=== PATIENT | female | born 1940 | race Hispanic/Latino ===

== ENCOUNTER 2017-07-19 19:11 | Inpatient (IN) | payer MEDICARE ==
[~2017-07-19] VITALS: Ht 157.5 cm; Wt 67.4 kg
[2017-07-19] MEDS ORDERED: ONDANSETRON HCL 4 MG/2 ML VIAL ONE (19:31)
[2017-07-19] MEDS ORDERED: HYDROMORPHONE 1 MG/1 ML AMP ONE ×2 (19:31→21:06)
[2017-07-19 20:34] LABS: BASOPHILS % (AUTO) 0.3 % (0.0-5.0); EOSINOPHILS % (AUTO) 0.1 % (0.0-8.0); LYMPHOCYTES % (AUTO) 6.6 % (21.0-51.0); MEAN CORPUSCULAR HEMOGLOBIN 31.1 pg (27.0-33.0); MEAN CORPUSCULAR HGB CONC 33.6 g/dL (32.0-36.0); MEAN CORPUSCULAR VOLUME 92.6 fL (79-99); MONOCYTES % (AUTO) 8.4 % (3.0-13.0); NEUTROPHILS % (AUTO) 84.6 % (40.0-77.0); PLATELET COUNT (AUTO) 164 K/uL (130-400); RED BLOOD CELL COUNT(AUTO) 3.79 MIL/uL (4.00-5.50); WHITE BLOOD COUNT (AUTO) 11.2 K/uL (4.8-10.8)
[2017-07-19 20:35] LABS: APPEARANCE,URINE Cloudy (CLEAR); BILIRUBIN,URINE Negative (NEGATIVE); COLOR,URINE Yellow (YELLOW); GLUCOSE, URINE (UA) 250 mg/dL (NEGATIVE); KETONES,URINE Negative (NEGATIVE); LEUKOCYTE ESTERASE ,URINE Large (NEGATIVE); NITRATE,URINE Positive (NEGATIVE); OCCULT BLOOD,URINE Small (NEGATIVE); PROTEIN,URINE Trace (NEGATIVE); UROBILINOGEN,URINE 0.2 mg/dL (0.2-1.0)
[2017-07-19 20:59] LABS: BACTERIA,URINE Many /HPF (None Seen); RBC,URINE None Seen /HPF (0-1)
[2017-07-19 21:01] LABS: CREATINE KINASE MB 9.5 ng/mL (0.5-3.6)
[2017-07-19] MEDS ORDERED: CEFTRIAXONE SODIUM 1 GM ONE (22:23)
[2017-07-20] VITALS (7 sets, daily range): BP systolic 120–165; BP diastolic 59–84
[2017-07-20] MEDS ORDERED: CARV12.511 PO (01:42)
[2017-07-20] MEDS ORDERED: VALB80CA PO (01:42)
[2017-07-20] MEDS ORDERED: LORA10TA7 PO (01:42)
[2017-07-20] MEDS ORDERED: MONT10TA24 PO (01:42)
[2017-07-20] MEDS ORDERED: ASPI-555 PO (01:42)
[2017-07-20] MEDS ORDERED: SERT50TA12 PO (01:42)
[2017-07-20] MEDS ORDERED: FOLI1TAB15 PO (01:42)
[2017-07-20] MEDS ORDERED: IBUP-2077 PO (01:42)
[2017-07-20] MEDS ORDERED: INSLAN SQ (01:42)
[2017-07-20] MEDS ORDERED: CYAN250014 PO (01:42)
[2017-07-20] MEDS ORDERED: FERR324T4 PO (01:42)
[2017-07-20] MEDS ORDERED: CARB-39 PO (01:42)
[2017-07-20] MEDS ORDERED: LISI-613 PO (01:42)
[2017-07-20] MEDS ORDERED: LOVA40TA2 PO (01:42)
[2017-07-20] MEDS ORDERED: TRAZ-147 PO (01:42)
[2017-07-20] MEDS ORDERED: MELO-106 PO (01:42)
[2017-07-20 05:10] LABS: HEMATOCRIT 31.1 % (36-48); MEAN CORPUSCULAR HEMOGLOBIN 31.8 pg (27.0-33.0); MEAN CORPUSCULAR HGB CONC 34.2 g/dL (32.0-36.0); PLATELET COUNT (AUTO) 144 K/uL (130-400); RED BLOOD CELL COUNT(AUTO) 3.34 MIL/uL (4.00-5.50); WHITE BLOOD COUNT (AUTO) 8.7 K/uL (4.8-10.8)
[2017-07-20 05:27] LABS: CREATININE 1.9 mg/dL (0.5-1.5); POTASSIUM 3.4 mmol/L (3.5-5.1)
[2017-07-20] MEDS ORDERED: SODIUM CHLORIDE 0.9% 500ML 500 ML IV SCH (06:30)
[2017-07-20] MEDS ORDERED: HYDROMORPHONE HCL 2 MG/ML VIAL IVP PRN (06:30)
[2017-07-20] MEDS ORDERED: ACETAMINOPHEN 325 MG TAB PO PRN ×3 (06:30→11:45)
[2017-07-20] MEDS ORDERED: ONDANSETRON HCL 4 MG/2 ML VIAL IVP PRN (06:30)
[2017-07-20] MEDS ORDERED: GLUCAGON 1MG KIT 1 MG ML IM PRN (09:45)
[2017-07-20] MEDS ORDERED: LIDOCAINE HCL-MPF 1% 2ML VIAL IVP PRN (09:45)
[2017-07-20] MEDS ORDERED: POTASSIUM CHLORIDE 20MEQ/100ML 100 ML IV PRN (09:45)
[2017-07-20] MEDS ORDERED: DEXTROSE 50%-WATER 50 ML DISP.SYRIN IV PRN (09:45)
[2017-07-20] MEDS: ACETAMINOPHEN-CODEINE 300/30MG TAB PO PRN (10:20)
[2017-07-20] MEDS: POTASSIUM CHLORIDE 20 MEQ ERTAB PO PRN ×2 (10:33→12:29)
[2017-07-20] MEDS: INSULIN HUMULIN R 100 UNIT/ML 3ML SQ SCH ×3 (11:30→21:09)
[2017-07-20] MEDS ORDERED: SODIUM CHLORIDE 0.9% 1000ML 1,000 ML IV SCH (11:37)
[2017-07-20] MEDS ORDERED: ONDANSETRON HCL 4 MG/2 ML VIAL IV PRN (11:45)
[2017-07-20] MEDS ORDERED: GUAIFENESIN-DM 200/20 MG 10 ML PO PRN (11:45)
[2017-07-20] MEDS ORDERED: MAG HYDROX/AL HYDROX/SIMETH ES 30 ML SUSP UDCUP PO PRN (11:45)
[2017-07-20] MEDS ORDERED: NITROGLYCERIN 0.4 MG SL TAB SL PRN (11:45)
[2017-07-20] MEDS ORDERED: TRAZODONE HCL 100 MG TABLET PO PRN (11:45)
[2017-07-20] MEDS ORDERED: SODIUM CHLORIDE 0.9% 1000ML 1,000 ML IV ONE (12:06)
[2017-07-20] MEDS ORDERED: ENOXAPARIN SODIUM 40 MG/0.4 ML SYRINGE SQ SCH (12:15)
[2017-07-20] MEDS: CARBIDOPA LEVO PO SCH ×2 (14:00→20:58)
[2017-07-20] MEDS: INSULIN GLARGINE 100 UNITS/ML 10 ML VIAL SQ SCH (16:30)
[2017-07-20] MEDS: CARVEDILOL 12.5 MG TABLET PO SCH (20:57)
[2017-07-20] MEDS: FAMOTIDINE/PF 20 MG/2 ML VIAL IV SCH (20:57)
[2017-07-21] VITALS (28 sets, daily range): BP systolic 113–195; BP diastolic 44–89
[2017-07-21 05:25] LABS: HEMATOCRIT 28.6 % (36-48); MEAN CORPUSCULAR HEMOGLOBIN 32.1 pg (27.0-33.0); MEAN CORPUSCULAR HGB CONC 34.5 g/dL (32.0-36.0); MEAN CORPUSCULAR VOLUME 93.2 fL (79-99); NUCLEATED RED BLOOD CELLS 0.1 % (0.0-0.19); PLATELET COUNT (AUTO) 153 K/uL (130-400); RED BLOOD CELL COUNT(AUTO) 3.07 MIL/uL (4.00-5.50); RED CELL DISTRIBUTION WIDTH 14.9 % (11.0-15.5); WHITE BLOOD COUNT (AUTO) 7.8 K/uL (4.8-10.8)
[2017-07-21 05:36] LABS: PHOSPHORUS 2.6 mg/dL (2.5-4.9); POTASSIUM 3.9 mmol/L (3.5-5.1)
[2017-07-21] MEDS ORDERED: CEFAZOLIN 2GM / 50 ML 50 ML IV ONE (06:00)
[2017-07-21] MEDS: CEFAZOLIN SODIUM 1 GM VIAL IVP SCH ×4 (06:00→22:20)
[2017-07-21] MEDS: WATER FOR INJECTION,STERILE 20 ML VIAL IJ SCH ×2 (06:00→19:27)
[2017-07-21 06:33] LABS: BAND NEUTROPHILS % (MANUAL) 8 % (0-2); BASOPHILS % (MANUAL) 1 % (0-2); LYMPHOCYTES % (MANUAL) 14 % (22-44); MONOCYTES % (MANUAL) 10 % (2-9); REACTIVE LYMPHOCYTES 1 % (0-0); SEGMENTED NEUTROPHILS % 66 % (40-70)
[2017-07-21 06:34] LABS: MAN.DIFF COMMENT-IMPRESSION MANUAL DIFFERENTIAL
[2017-07-21 06:35] LABS: PLATELET MORPHOLOGY COMMENT ADEQUATE
[2017-07-21] MEDS: INSULIN HUMULIN R 100 UNIT/ML 3ML SQ SCH ×4 (07:07→20:50)
[2017-07-21] MEDS: CARVEDILOL 12.5 MG TABLET PO SCH ×2 (07:26→20:21)
[2017-07-21] MEDS ORDERED: FENTANYL CITRATE PF 50 MCG/1 ML 5ML AMP IV ONE (08:05)
[2017-07-21] MEDS ORDERED: PROPOFOL 10 MG/ML 20ML VIAL IV ONE (08:05)
[2017-07-21] MEDS: LORATADINE 10 MG TABLET PO SCH (09:00)
[2017-07-21] MEDS: FOLIC ACID 1 MG TABLET PO SCH (09:00)
[2017-07-21] MEDS: CARBIDOPA LEVO PO SCH ×3 (09:00→19:26)
[2017-07-21] MEDS: CYANOCOBALAMIN (VITAMIN B-12) 1,000 MCG TABLET PO SCH (09:00)
[2017-07-21] MEDS: SERTRALINE HCL 50 MG TABLET PO SCH (09:00)
[2017-07-21] MEDS: INGREZZA PO SCH (09:00)
[2017-07-21] MEDS: FERROUS SULFATE 325 MG TABLET.DR PO SCH (09:00)
[2017-07-21] MEDS: MONTELUKAST SODIUM 10 MG TAB PO SCH (09:00)
[2017-07-21] MEDS ORDERED: EPHEDRINE SULFATE 50 MG/ML AMPULE ONE (09:22)
[2017-07-21] MEDS: CEFTRIAXONE SODIUM 1 GM IV SCH (10:10)
[2017-07-21] MEDS: HYDRALAZINE HCL 20 MG/ML VIAL IV PRN (10:21)
[2017-07-21] MEDS: FAMOTIDINE/PF 20 MG/2 ML VIAL IV SCH (11:58)
[2017-07-21] MEDS: CEFAZOLIN 2GM / 50 ML 50 ML IV SCH ×2 (15:56→22:00)
[2017-07-21] MEDS: INSULIN GLARGINE 100 UNITS/ML 10 ML VIAL SQ SCH (17:04)
[2017-07-21] MEDS: ATORVASTATIN CALCIUM 10 MG TABLET PO SCH (20:21)
[2017-07-21] MEDS: ACETAMINOPHEN-CODEINE 300/30MG TAB PO PRN (22:25)
[2017-07-22 04:00] VITALS: BP 147/69
[2017-07-22 04:40] LABS: HEMATOCRIT 26.4 % (36-48); MEAN CORPUSCULAR HEMOGLOBIN 31.5 pg (27.0-33.0); MEAN CORPUSCULAR VOLUME 92.5 fL (79-99); PLATELET COUNT (AUTO) 141 K/uL (130-400); RED BLOOD CELL COUNT(AUTO) 2.86 MIL/uL (4.00-5.50); RED CELL DISTRIBUTION WIDTH 14.8 % (11.0-15.5); WHITE BLOOD COUNT (AUTO) 6.9 K/uL (4.8-10.8)
[2017-07-22 04:51] LABS: CREATININE 0.7 mg/dL (0.5-1.5); POTASSIUM 3.5 mmol/L (3.5-5.1)
[2017-07-22] MEDS: POTASSIUM CHLORIDE 10% ELIXIR 20 MEQ/15 ML UDCUP PO PRN ×2 (05:56→08:42)
[2017-07-22] MEDS: INSULIN HUMULIN R 100 UNIT/ML 3ML SQ SCH ×5 (06:24→21:27)
[2017-07-22 07:00] VITALS: BP 213/88
[2017-07-22] MEDS: HYDRALAZINE HCL 20 MG/ML VIAL IV PRN (08:39)
[2017-07-22] MEDS: CEFTRIAXONE SODIUM 1 GM IV SCH (08:40)
[2017-07-22] MEDS: FAMOTIDINE/PF 20 MG/2 ML VIAL IV SCH (08:40)
[2017-07-22] MEDS: LORATADINE 10 MG TABLET PO SCH (08:41)
[2017-07-22] MEDS: SERTRALINE HCL 50 MG TABLET PO SCH (08:41)
[2017-07-22] MEDS: MONTELUKAST SODIUM 10 MG TAB PO SCH (08:41)
[2017-07-22] MEDS: FOLIC ACID 1 MG TABLET PO SCH (08:41)
[2017-07-22] MEDS: CYANOCOBALAMIN (VITAMIN B-12) 1,000 MCG TABLET PO SCH (08:41)
[2017-07-22] MEDS: FERROUS SULFATE 325 MG TABLET.DR PO SCH (08:41)
[2017-07-22] MEDS: ACETAMINOPHEN-CODEINE 300/30MG TAB PO PRN (08:42)
[2017-07-22] MEDS: CARVEDILOL 12.5 MG TABLET PO SCH ×2 (08:42→20:31)
[2017-07-22] MEDS: CARBIDOPA LEVO PO SCH ×3 (08:43→20:31)
[2017-07-22] MEDS: INGREZZA PO SCH (09:00)
[2017-07-22] MEDS: ENOXAPARIN SODIUM 40 MG/0.4 ML SYRINGE SQ SCH (09:34)
[2017-07-22 11:00] VITALS: BP 104/55
[2017-07-22] MEDS ORDERED: CLONIDINE HCL 0.1 MG TABLET PO PRN (11:45)
[2017-07-22 15:00] VITALS: BP 123/58
[2017-07-22] MEDS: INSULIN GLARGINE 100 UNITS/ML 10 ML VIAL SQ SCH (17:58)
[2017-07-22] MEDS: ATORVASTATIN CALCIUM 10 MG TABLET PO SCH (20:29)
[2017-07-22 21:18] VITALS: BP 183/69
[2017-07-23] VITALS (7 sets, daily range): BP systolic 107–192; BP diastolic 59–85
[2017-07-23 05:53] LABS: HEMATOCRIT 26.6 % (36-48); MEAN CORPUSCULAR HEMOGLOBIN 32.1 pg (27.0-33.0); MEAN CORPUSCULAR HGB CONC 35.1 g/dL (32.0-36.0); MEAN CORPUSCULAR VOLUME 91.4 fL (79-99); PLATELET COUNT (AUTO) 166 K/uL (130-400); RED BLOOD CELL COUNT(AUTO) 2.91 MIL/uL (4.00-5.50); RED CELL DISTRIBUTION WIDTH 14.6 % (11.0-15.5); WHITE BLOOD COUNT (AUTO) 7.4 K/uL (4.8-10.8)
[2017-07-23] MEDS: INSULIN HUMULIN R 100 UNIT/ML 3ML SQ SCH ×4 (05:55→21:00)
[2017-07-23 06:15] LABS: CREATININE 0.7 mg/dL (0.5-1.5)
[2017-07-23] MEDS: SERTRALINE HCL 50 MG TABLET PO SCH (08:50)
[2017-07-23] MEDS: FAMOTIDINE/PF 20 MG/2 ML VIAL IV SCH (08:50)
[2017-07-23] MEDS: LORATADINE 10 MG TABLET PO SCH (08:50)
[2017-07-23] MEDS: CEFTRIAXONE SODIUM 1 GM IV SCH (08:50)
[2017-07-23] MEDS: CYANOCOBALAMIN (VITAMIN B-12) 1,000 MCG TABLET PO SCH (08:50)
[2017-07-23] MEDS: FOLIC ACID 1 MG TABLET PO SCH (08:50)
[2017-07-23] MEDS: FERROUS SULFATE 325 MG TABLET.DR PO SCH (08:50)
[2017-07-23] MEDS: CARVEDILOL 12.5 MG TABLET PO SCH ×2 (08:51→20:10)
[2017-07-23] MEDS: MONTELUKAST SODIUM 10 MG TAB PO SCH (08:51)
[2017-07-23] MEDS: ENOXAPARIN SODIUM 40 MG/0.4 ML SYRINGE SQ SCH (08:52)
[2017-07-23] MEDS: LACTULOSE 20 GM/30 ML UDCUP PO PRN ×2 (08:53→22:22)
[2017-07-23] MEDS: CARBIDOPA LEVO PO SCH ×3 (08:54→20:10)
[2017-07-23] MEDS: INGREZZA PO SCH (08:54)
[2017-07-23] MEDS ORDERED: ENOXAPARIN SODIUM 40 MG/0.4 ML SYRINGE SQ SCH (09:00)
[2017-07-23] MEDS ORDERED: AMLO5TAB4 PO (10:09)
[2017-07-23] MEDS ORDERED: AMPI500C12 PO (10:17)
[2017-07-23] MEDS: ACETAMINOPHEN-CODEINE 300/30MG TAB PO PRN ×2 (10:32→18:47)
[2017-07-23] MEDS: AMLODIPINE BESYLATE 5 MG TAB PO SCH (11:04)
[2017-07-23] MEDS: LEVOFLOXACIN 250 MG/D5W 50ML 50 ML IV SCH (12:02)
[2017-07-23] MEDS ORDERED: INSULIN GLARGINE 100 UNITS/ML 10 ML VIAL SQ ONE (16:56)
[2017-07-23] MEDS: INSULIN GLARGINE 100 UNITS/ML 10 ML VIAL SQ SCH (17:01)
[2017-07-23] MEDS: ATORVASTATIN CALCIUM 10 MG TABLET PO SCH (20:10)
[2017-07-24] VITALS (8 sets, daily range): BP systolic 139–209; BP diastolic 57–77
[2017-07-24] MEDS: ACETAMINOPHEN-CODEINE 300/30MG TAB PO PRN ×2 (00:33→11:22)
[2017-07-24] MEDS: HYDRALAZINE HCL 20 MG/ML VIAL IV PRN (01:50)
[2017-07-24] MEDS: INSULIN HUMULIN R 100 UNIT/ML 3ML SQ SCH ×3 (05:33→16:30)
[2017-07-24] MEDS: INGREZZA PO SCH (09:00)
[2017-07-24] MEDS: AMLODIPINE BESYLATE 5 MG TAB PO SCH (09:00)
[2017-07-24] MEDS: CARBIDOPA LEVO PO SCH ×2 (09:00→10:45)
[2017-07-24] MEDS: FOLIC ACID 1 MG TABLET PO SCH (10:00)
[2017-07-24] MEDS: SERTRALINE HCL 50 MG TABLET PO SCH (10:00)
[2017-07-24] MEDS: FERROUS SULFATE 325 MG TABLET.DR PO SCH (10:00)
[2017-07-24] MEDS: ENOXAPARIN SODIUM 40 MG/0.4 ML SYRINGE SQ SCH (10:00)
[2017-07-24] MEDS: CYANOCOBALAMIN (VITAMIN B-12) 1,000 MCG TABLET PO SCH (10:00)
[2017-07-24] MEDS: LORATADINE 10 MG TABLET PO SCH (10:00)
[2017-07-24] MEDS: MONTELUKAST SODIUM 10 MG TAB PO SCH (10:00)
[2017-07-24] MEDS: FAMOTIDINE/PF 20 MG/2 ML VIAL IV SCH (10:00)
[2017-07-24] MEDS: CARVEDILOL 12.5 MG TABLET PO SCH (10:01)
[2017-07-24] MEDS: LACTULOSE 20 GM/30 ML UDCUP PO PRN (10:07)
[2017-07-24] MEDS: LEVOFLOXACIN 250 MG/D5W 50ML 50 ML IV SCH (12:46)
[2017-07-24] MEDS: INSULIN GLARGINE 100 UNITS/ML 10 ML VIAL SQ SCH (16:30)
== END 2017-07-24 18:00 | disposition hospice, home (50) | DRG 481 ==
LOC: EDH 19:11 → EDHIP 20:47 → 4AH 07-20 01:04
PROVIDERS: ADMIT Internal Medicine Nephrology; ATTEND Internal Medicine Nephrology
PROC: 0QS704Z Reposition Left Upper Femur with Internal Fixation Device, Open Approach (ICD-10-PCS; principal; 2017-07-21 08:05)
DX: S72.142A Displaced intertrochanteric fracture of left femur, initial encounter for closed fracture (principal); N39.0 Urinary tract infection, site not specified; D64.9 Anemia, unspecified; G20 Parkinson's disease; J44.9 Chronic obstructive pulmonary disease, unspecified; E11.9 Type 2 diabetes mellitus without complications; E78.00 Pure hypercholesterolemia, unspecified; E78.5 Hyperlipidemia, unspecified; F02.80 Dementia in other diseases classified elsewhere, unspecified severity, without behavioral disturbance, psychotic disturbance, mood disturbance, and anxiety; F31.9 Bipolar disorder, unspecified; F41.9 Anxiety disorder, unspecified; G30.9 Alzheimer's disease, unspecified; I10 Essential (primary) hypertension; W19.XXXA Unspecified fall, initial encounter; Y93.89 Activity, other specified; Y92.098 Other place in other non-institutional residence as the place of occurrence of the external cause; Y99.8 Other external cause status; Z90.49 Acquired absence of other specified parts of digestive tract; Z83.3 Family history of diabetes mellitus; Z82.49 Family history of ischemic heart disease and other diseases of the circulatory system
CPT/HCPCS: 36415; 71045; 73502; 73551; 76000; 80048; 81001; 82550; 82553; 82948; 84100; 84484; 85025; 85027; 86850; 86900; 86901; 87088; 87186; 93005; 97039; A4218; J0360; J0690; J0696; J1170; J1650; J1815; J1956; J2405; J2704; J3010; J3490; J7030

== ENCOUNTER → 2021-02-14 | Outpatient (CLI) | payer MEDICARE ==
[~2021-02-14] MED LIST: AMLO5TAB4 PO; AMPI500C12 PO; ASPI-556 PO; CARB-39 PO; CARV12.511 PO; CYAN250014 PO; FERR324T4 PO; FOLI1TAB15 PO; INSLAN SQ; LISI20TA24 PO; LORA10TA7 PO; LOVA40TA2 PO; MONT10TA32 PO; SERT-439 PO; TRAZ-187 PO; VALB80CA PO
== END | disposition home or self-care (01) ==
LOC: SHCH 12:48
PROVIDERS: ATTEND Internal Medicine Cardiovascular Disease
DX: I35.1 Nonrheumatic aortic (valve) insufficiency (principal); R55 Syncope and collapse; R94.31 Abnormal electrocardiogram [ECG] [EKG]; E11.9 Type 2 diabetes mellitus without complications
CPT/HCPCS: 93306; 93356